=== PATIENT | male | born 1980 | race Hispanic/Latino ===

== ENCOUNTER 2018-04-23 00:16 | Emergency (ER) | payer SELFPAY ==
[2018-04-23 00:59] LABS: Bilirubin Negative (Negative); Blood, Urine Negative (Negative); Clarity CLEAR (Clear); Glucose, Urine (Dipstick) Negative (Negative); Leukocyte Negative (Negative); Nitrite Negative (Negative); Protein, Urine (Dipstick) Negative (Neg-Trace); Specific Gravity, Urine 1.022 (1.002-1.036); Urobilinogen 0.2 mg/dL (0.2-1.0)
[2018-04-23 01:55] LABS: #Eosinphils 0.1 thou/uL (0.0-0.7); #Lymphocytes 0.8 thou/uL (1.20-3.40); #Monocytes 1.1 thou/uL (0.11-0.59); #Neutrophils 9.2 thou/uL (1.40-6.50); %Basophils 0.1 % (0.0-1.0); %Eosinophils 0.6 % (0.0-10.0); %Lymphocytes 7.3 % (21.0-51.0); %Monocytes 9.9 % (0.0-10.0); %Neutrophils 82.1 % (42.0-75.0); Hemoglobin 15.3 g/dL (14.0-18.0); Mean Corpuscular HGB CONC 35.1 g/dL (32.0-36.0); Mean Corpuscular Hemoglobin 32.4 pg (27.0-31.0); Mean Corpuscular Volume 92.4 fL (78.0-98.0); Mean Platelet Volume 8.1 fL (7.4-10.4); Platelet Count 225 thou/uL (130-400); RBC Distribution Width 11.5 % (11.5-14.5); Red Blood Cell (RBC) Count 4.74 mill/uL (4.70-6.10); White Blood Cell (WBC) Count 11.2 thou/uL (4.8-10.8)
[2018-04-23] MEDS ORDERED: Ketorolac Tromethamine 30 MG/ML VIAL ONE (02:03)
[2018-04-23] MEDS ORDERED: Ketorolac Tromethamine 60 MG/2 ML VIAL ONE (02:08)
[2018-04-23 02:09] LABS: ALT (SGPT) 14 U/L (8-55); AST (SGOT) 20 U/L (5-34); Albumin 4.4 g/dL (3.5-5.0); Alkaline Phosphatase 62 U/L (40-150); Anion Gap 14 mmol/L (10-20); BUN (Urea Nitrogen) 13 mg/dL (8.9-20.6); Bilirubin, Total 0.9 mg/dL (0.2-1.2); Calc. Creatinine Clearance 0 mL/min (70-130); Calcium 9.4 mg/dL (7.8-10.44); Carbon Dioxide 23 mmol/L (22-29); Chloride 106 mmol/L (98-107); Estimated GFR-MDRD 70; Globulin 3.1 g/dL (2.4-3.5); Glucose 112 mg/dL (70-105); Protein, Total 7.5 g/dL (6.0-8.3); Sodium 139 mmol/L (136-145)
--- NOTE | 2018-04-23 08:43 | CT ---
PRELIMINARY REPORT/[facility]/EMERGENTY AFTER-HOURS PROCEDURE CT Abdomen and Pelvis Without Intravenous Contrast EXAM DATE/TIME: 04/23/2018 1:44 AM CLINICAL HISTORY: 37 years old, male; Pain; Abdominal pain; Flank; Right; Patient HX: Right flank pain starting yesterd ay with difficulty urinating. Has a history of kidney stones. TECHNIQUE: Axial computed tomography images of the abdomen and pelvis without intravenous contrast. Coronal reformatted images were created and reviewed. COMPARISON: No relevant prior studies available. FINDINGS: Lower thorax: No acute findings. ABDOMEN: Liver: Normal. No mass. Gallbladder and bile ducts: Normal. No calcified stones. No ductal dilation. Pancreas: Normal. No ductal dilation. Spleen: Normal. No splenomegaly. Adrenals: Normal. No mass. Kidneys and ureters: 6 mm obstructing stone in the distal right ureter causing moderate obstructive u ropathy. Nonobstructing stones in the kidneys bilaterally. Stomach and bowel: No bowel wall thickening or intestinal obstruction. Appendix: Appendix not visualized. No evidence of appendicitis. PELVIS: Bladder: Unremarkable as visualized. Reproductive: Unremarkable as visualized. ABDOMEN and PELVIS: Intraperitoneal space: Normal. No free air. No significant fluid collection. Bones/joints: No acute fracture. No dislocation. Soft tissues: Unremarkable. Vasculature: Normal. No abdominal aortic aneurysm. Lymph nodes: Normal intrapulmonary lymph nodes associated with the major fissures bilaterally, incide ntal. IMPRESSION: 6 mm obstructing stone in the distal right ureter causing moderate obstructive uropathy. Thank you for allowing us to participate in the care of your patient. Dictated and Authenticated by: Noel Escalera MD 04/23/2018 1:57 AM Central Time ([place] & [place]) FINAL REPORT IMPRESSION: I agree with the preliminary report provided. There is a moderately obstructing stone within the dist al right ureter measuring 5.5 x 4 mm in its greatest axial dimension and 6 mm in its greatest longitu dinal dimension on the coronal series. There are 1-2 mm nonobstructing punctate stones within the rig ht kidney. There are at least four separate stones present. There are 3 and 2 mm nonobstructing stone s seen within the superior pole of the left kidney. There is a 5 mm pulmonary nodule within the right lower lobe. There is a tiny 5 mm hypodensity within the right hepatic lobe. There is a mild amount o f retained stool within the colon. No acute osseous abnormality is evident. POS: [facility]
== END 2018-04-23 02:30 | disposition home or self-care (01) ==
LOC: ERS 00:16
DX: N13.2 Hydronephrosis with renal and ureteral calculous obstruction (principal)
CPT/HCPCS: 36415; 74176; 80053; 81003; 85025; 96372; J1885

== ENCOUNTER 2018-05-12 21:20 | Emergency (ER) | payer SELFPAY ==
[2018-05-12 21:55] LABS: Bilirubin Negative (Negative); Blood, Urine Large (Negative); Clarity CLOUDY (Clear); Glucose, Urine (Dipstick) Negative (Negative); Leukocyte Small (Negative); Nitrite Negative (Negative); Protein, Urine (Dipstick) Trace mg/dL (Neg-Trace); Specific Gravity, Urine 1.018 (1.002-1.036); Urobilinogen 0.2 mg/dL (0.2-1.0)
[2018-05-12 21:57] LABS: Bacteria/HPF None Seen HPF (None Seen); Hyaline Casts/LPF 4-6 HYALINE CAST LPF (0-3 Hyaline); Pathc Cast-AUWi Flag 0.58 (0-2.49); RBC/HPF GREATER THAN 50-TNTC HPF (0-3); Squamous Epithelial 0-3 HPF (0-3)
[2018-05-12] MEDS ORDERED: Ondansetron PF 4 MG/2 ML Vial ONE (22:06)
[2018-05-12] MEDS ORDERED: Ketorolac Tromethamine 30 MG/ML VIAL ONE (22:06)
[2018-05-12] MEDS ORDERED: Morphine 4 MG/ML VIAL ONE (22:06)
[2018-05-12 22:12] LABS: Sperm/HPF 1+ HPF (None Seen)
[2018-05-12 22:41] LABS: #Eosinphils 0.1 thou/uL (0.0-0.7); #Lymphocytes 0.6 thou/uL (1.20-3.40); #Monocytes 0.8 thou/uL (0.11-0.59); #Neutrophils 10.2 thou/uL (1.40-6.50); %Basophils 0.4 % (0.0-1.0); %Eosinophils 0.9 % (0.0-10.0); %Lymphocytes 5.2 % (21.0-51.0); %Monocytes 6.9 % (0.0-10.0); %Neutrophils 86.5 % (42.0-75.0); Hemoglobin 14.3 g/dL (14.0-18.0); Mean Corpuscular HGB CONC 33.8 g/dL (32.0-36.0); Mean Corpuscular Hemoglobin 31.5 pg (27.0-31.0); Mean Corpuscular Volume 93.4 fL (78.0-98.0); Mean Platelet Volume 8.3 fL (7.4-10.4); Platelet Count 215 thou/uL (130-400); RBC Distribution Width 11.3 % (11.5-14.5); Red Blood Cell (RBC) Count 4.54 mill/uL (4.70-6.10); White Blood Cell (WBC) Count 11.8 thou/uL (4.8-10.8)
[2018-05-12 23:05] LABS: ALT (SGPT) 12 U/L (8-55); AST (SGOT) 18 U/L (5-34); Albumin 4.6 g/dL (3.5-5.0); Alkaline Phosphatase 61 U/L (40-150); Anion Gap 13 mmol/L (10-20); BUN (Urea Nitrogen) 18 mg/dL (8.9-20.6); Bilirubin, Total 0.5 mg/dL (0.2-1.2); Calc. Creatinine Clearance 0 mL/min (70-130); Calcium 9.7 mg/dL (7.8-10.44); Carbon Dioxide 25 mmol/L (22-29); Chloride 103 mmol/L (98-107); Estimated GFR-MDRD 77; Glucose 106 mg/dL (70-105); Lipase 16 U/L (8-78); Protein, Total 7.6 g/dL (6.0-8.3); Sodium 137 mmol/L (136-145)
--- NOTE | 2018-05-12 23:05 | CT ---
CT ABDOMEN AND PELVIS WITHOUT CONTRAST: 05/12/2018 PROVIDED CLINICAL HISTORY: Left flank pain and hematuria. COMPARISON: 04/23/2018 FINDINGS: The visualized lung bases are free or significant opacity. Bilateral renal calculi are redemonstrated. There has been interval passage of the distal right uret eral calculus, now within the urinary bladder, right of midline. This measures about 5 mm. There is a 3 mm distal left ureteral calculus now present, just proximal to the UVJ. There is no significant ureteral or renal pelvic dilatation. There is nonspecific perinephric fat stranding on the left. The solid abdominal organs are suboptimally evaluated in the absence of IV contrast material, but dem onstrate an otherwise unremarkable unenhanced CT appearance. No bowel dilatation, inflammatory fat stranding, free fluid, or free air apparent. IMPRESSION: 1. New 3 mm left distal ureteral calculus, without significant obstructive change apparent. 2. The previously described right ureteral calculus is now within the urinary bladder. 3. Bilateral nephrolithiasis. POS: [facility]
== END 2018-05-12 23:33 | disposition home or self-care (01) ==
LOC: ERS 21:20
DX: N20.1 Calculus of ureter (principal); Z79.899 Other long term (current) drug therapy
CPT/HCPCS: 74176; 80053; 81003; 81015; 83690; 85025; 87086; 96361; 96374; 96375; J1885; J2270; J2405

== ENCOUNTER 2020-12-04 21:19 | Emergency (ER) | payer SELFPAY | END 2020-12-04 23:57 | disposition home or self-care (01) | LOC: ERS 21:19 | DX: S52.571A Other intraarticular fracture of lower end of right radius, initial encounter for closed fracture (principal); W11.XXXA Fall on and from ladder, initial encounter | CPT/HCPCS: 25675; 70450; 71045; 72125; 80053; 81003; 81015; 85025; 87086; 96374; 96375; 99152; 99153; J1885; J2270; J3010 ==

== ENCOUNTER 2021-06-13 11:47 | Emergency (ER) | payer SELFPAY ==
[2021-06-13] MEDS ORDERED: Lidocaine 1% PF 5 ML VIAL ONE (16:55)
== END 2021-06-13 17:55 | disposition home or self-care (01) ==
LOC: ERS 11:47
DX: S61.412A Laceration without foreign body of left hand, initial encounter (principal); W26.8XXA Contact with other sharp object(s), not elsewhere classified, initial encounter
CPT/HCPCS: 12002